=== PATIENT | male | born 1965 | race Two or more races ===

== ENCOUNTER → 2025-03-09 | Outpatient (CLI) | payer BC, SELFPAY ==
--- NOTE | 2025-03-09 15:40 | XR_ITS ---
Examination: Bilateral hands, 6 views. Technique: AP, Oblique, Lateral each hand total 6 views Date and time of exam: March 09, 2025, 1557 hrs. Indications: Bilateral hand pain months Findings: Mild juxta-articular bone demineralization. Mild to moderate osteoarthritis radiocarpal, first carpometacarpal joints, distal interphalangeal joints second through fifth digits, interphalangeal joint first digits bilaterally, more prominent right hand No erosive arthritis No cortical bone destruction No fractures Impression: Osteoarthritis as above
--- NOTE | 2025-03-09 15:40 | XR_ITS ---
Examination: Bilateral wrists 6 views Technique: AP oblique lateral each wrist total 6 views Date and time: March 09, 2025, 1603 hrs. Indications: Bilateral wrist pain months Findings: Mild to moderate osteoarthritis radiocarpal, navicular trapezium, first carpometacarpal joints, more severe right wrist No erosive arthritis No acute fractures, old 4 mm bone density dorsal to the proximal radiocarpal row No avascular necrosis Impression: Osteoarthritis as above
== END | disposition home or self-care (01) ==
DX: M18.0 Bilateral primary osteoarthritis of first carpometacarpal joints (principal); M19.042 Primary osteoarthritis, left hand; M19.041 Primary osteoarthritis, right hand; M19.032 Primary osteoarthritis, left wrist; M19.031 Primary osteoarthritis, right wrist
CPT/HCPCS: 73110; 73130